=== PATIENT | female | born 1955 | race African-American/Black ===

== ENCOUNTER 2016-09-13 09:07 | Emergency (ER) | payer BC ==
[2016-09-13 09:12] VITALS: BP 146/96; PULSE 77; TEMP 98.2
[2016-09-13] MEDS ORDERED: KETOROLAC TROMETHAMINE 30 MG/1 ML VIAL IM ONE (10:10)
[2016-09-13] MEDS ORDERED: KETOROLAC TROMETHAMINE 30 MG/1 ML VIAL ONE (10:31)
--- NOTE | 2016-09-13 10:48 | PDOC ---
History of Present Illness - General Chief Complaint: Back Pain Stated Complaint: BACK PAIN Time Seen by Provider: 09/13/16 09:40 History Source: Patient Exam Limitations: No Limitations - History of Present Illness Initial Comments: CHIEF COMPLAINT: 60 y/o afebrile female with PMH hypothyroidism, kidney stones and HTN (resolved since adrenal gland removal) c/o right sided upper back and side pain x 3 days. HISTORY OF PRESENT ILLNESS: The patient states she started having right upper back pain Tuesday that felt like kidney pain. She took and Ibuprofen and the pain subsided. She had minimal pain yesterday and took another Ibuprofen. She states this morning the pain had moved around to her right side. She states the pain is intermittent. She denies f/c, n/v/d, CP, SOB, hematuria, dysuria. Vital signs on arrival are within normal limits. REVIEW OF SYSTEMS: GENERAL/CONSTITUTIONAL: No fever/chills. No weakness. No weight change. HEAD, EYES, EARS, NOSE AND THROAT: No change in vision. No ear pain or discharge. No sore throat. CARDIOVASCULAR: No chest pain or shortness of breath. RESPIRATORY: No cough, wheezing, or hemoptysis. GASTROINTESTINAL: +right side pain. No nausea, vomiting, diarrhea. GENITOURINARY: No dysuria, frequency, or change in urination. MUSCULOSKELETAL: No joint or muscle swelling or pain. No neck pain. +right upper back pain. SKIN: No rash or easy bruising. NEUROLOGIC: No headache, vertigo, loss of consciousness, or loss of sensation. PHYSICAL EXAM: GENERAL: The patient is awake, alert, and fully oriented, in no acute distress. She is uncomfortable appearing but ambulatory. HEAD: Normal with no signs of trauma. ENT: Pupils equal, round and reactive to light, extraocular movements intact, sclera anicteric, conjunctiva clear. Neck supple. LUNGS: Clear to auscultation bilaterally. Normal excursion. No respiratory distress or use of accessory muscles. CV: RRR, S1/S2, no MRG. Cap refill < 2 sec. ABDOMEN: Soft, non-distended, tenderness to palpation of right flank. BACK: No CVA TTP b/l. EXTREMITIES: Normal range of motion, no edema. NEUROLOGICAL: Normal speech, normal gait. CN II-XII grossly intact. PSYCH: Normal mood, normal affect. SKIN: Warm, dry, normal turgor, no rashes or lesions noted. Past History - Past Medical History Allergies/Adverse Reactions: Allergies Allergy/AdvReac Type Severity Reaction Status Date / Time No Known Allergies Allergy Verified 09/13/16 09:08 Home Medications: Ambulatory Orders Levothyroxine [Synthroid -] 100 mcg PO DAILY 09/13/16 Cardiac Disorders: Yes (svt) HTN: Yes (borderline) Thyroid Disease: Yes (hypo) - Surgical History Cardiac Surgery: Yes (ablation for svt) - Psycho/Social/Smoking Cessation Hx Anxiety: No Suicidal Ideation: No Smoking History: Never smoked Have you smoked in the past 12 months: No Information on smoking cessation initiated: No Hx Alcohol Use: No Drug/Substance Use Hx: No Substance Use Type: None *Physical Exam - Vital Signs Last Vital Signs Temp Pulse Resp BP Pulse Ox 98.2 F 77 18 146/96 100 09/13/16 09:09 09/13/16 09:09 09/13/16 09:09 09/13/16 09:09 09/13/16 09:09 ED Treatment Course - LABORATORY CBC & Chemistry Diagram: 09/13/16 10:26 09/13/16 10:26 Medical Decision Making - Medical Decision Making A/P: 60 y/o afebrile female with possible kidney stone/renal colic. Plan is as follows: 1. Labs 2. IM Toradol 3. UA/culture 4. IV fluids 5. Spiral CT Labs unremarkable UA negative for UTI Spiral CT IMPRESSION: Tiny right and left renal nonobstructing stone without gross evidence of hydroureteronephrosis or ureteral stone, bilaterally. No urinary bladder stone is identified. Evaluation of the liver, spleen, pancreas, gallbladder, both adrenal glands and both kidneys appear unremarkable. 8mm nodular density in right lung base. The patient was given all of her results. She does not have a PCP in [place] and provided a referral to Dr. Saunders. Strongly encouraged her to f/u with him as soon as possible for further work up of lung nodule. Instructed her to take ibuprofen with food for kidney stone and drink plenty of fluids. Instructed her to return to the ER with any worsening or concerning symptoms. The patient verbalizes understanding of all instructions, has no further questions and is awaiting discharge. *DC/Admit/Observation/Transfer Diagnosis at time of Disposition: Renal colic on right side, Kidney stone on right side - Discharge Dispostion Disposition: HOME Condition at time of disposition: Improved - Referrals Referrals: Matthew Saunders MD [Staff Physician] - Call tomorrow - Patient Instructions Printed Discharge Instructions: DI for Kidney Stones Additional Instructions: Discharge Instructions: -Take Ibuprofen for pain with food every 6 hours -Drink at least 64oz of water daily -Follow up with Dr. Saunders within 1 week -Return to the ER with any worsening or concerning symptoms. - Post Discharge Activity Work/School Note: Back to Work
[2016-09-13 10:54] LABS: EOSINOPHIL 0.9 % (0-4.5); MCH 29.2 pg (25.7-33.7); MCHC 32.1 g/dl (32.0-36.0); MEAN CELL VOLUME 90.8 fl (80-96); MEAN PLT VOLUME 7.1 fl (7.5-11.1); NEUTROPHILS 69.6 % (42.8-82.8); PLATELET COUNT 184 K/MM3 (134-434); RDW 13.4 % (11.6-15.6); WHITE BLOOD COUNT 4.6 K/mm3 (4.0-10.0)
[2016-09-13 11:07] LABS: URINE APPEARANCE CLEAR; URINE BILIRUBIN NEGATIVE (NEGATIVE); URINE BLOOD NEGATIVE (NEGATIVE); URINE COLOR COLORLESS; URINE GLUCOSE (UA) NEGATIVE (NEGATIVE); URINE KETONE NEGATIVE (NEGATIVE); URINE LEUK ESTERASE NEGATIVE (NEGATIVE); URINE NITRITE NEGATIVE (NEGATIVE); URINE PROTEIN NEGATIVE (NEGATIVE); URINE UROBILINOGEN NEGATIVE E.U./dl (0.2-1.0)
[2016-09-13 11:17] LABS: ALBUMIN 4.4 g/dl (3.4-5.0); ANION GAP 4 (8-16); BILIRUBIN,TOTAL 0.3 mg/dL (0.2-1.0); CALCIUM 9.8 mg/dL (8.5-10.1); CO2 32 mmol/L (21-32); CREATININE 1.4 mg/dL (0.55-1.02); GLUCOSE,RANDOM 88 mg/dL (74-106); SGOT/AST 41 U/L (15-37); SGPT/ALT 52 U/L (12-78); TOT PROT 8.2 g/dl (6.4-8.2)
[2016-09-13 11:18] LABS: ALK PHOS 108 U/L (45-117)
[2016-09-13] MEDS ORDERED: SODIUM CHLORIDE 1,000 ML IV STA (11:24)
--- NOTE | 2016-09-13 12:22 | PDOC ---
*Physical Exam - Vital Signs Last Vital Signs Temp Pulse Resp BP Pulse Ox 98.2 F 77 18 146/96 100 09/13/16 09:09 09/13/16 09:09 09/13/16 09:09 09/13/16 09:09 09/13/16 09:09 ED Treatment Course - LABORATORY CBC & Chemistry Diagram: 09/13/16 10:26 09/13/16 10:26 - ADDITIONAL ORDERS Additional order review: Laboratory Results 09/13/16 09/13/16 10:26 10:11 Sodium 138 Potassium 4.9 Chloride 102 Carbon Dioxide 32 Anion Gap 4 L BUN 23 H Creatinine 1.4 H Creat Clearance w eGFR 38.23 Random Glucose 88 Calcium 9.8 Total Bilirubin 0.3 AST 41 H ALT 52 Alkaline Phosphatase 108 Total Protein 8.2 Albumin 4.4 Urine Color Colorless Urine Appearance Clear Urine pH 6.0 Urine Protein Negative Urine Glucose (UA) Negative Urine Ketones Negative Urine Blood Negative Urine Nitrite Negative Urine Bilirubin Negative Urine Urobilinogen Negative Ur Leukocyte Esterase Negative 09/13/16 10:26 RBC 4.28 MCV 90.8 MCHC 32.1 RDW 13.4 MPV 7.1 L Neutrophils % 69.6 Lymphocytes % 23.5 Monocytes % 5.0 Eosinophils % 0.9 Basophils % 1.0 - Medications Given in the ED: ED Medications Discontinued Medications Generic Name Dose Route Start Last Admin Trade Name Freq PRN Reason Stop Dose Admin Ketorolac Tromethamine 30 mg 09/13/16 10:10 09/13/16 10:38 Toradol Injection - IM 09/13/16 10:11 30 mg ONCE ONE Administration Medical Decision Making - Medical Decision Making 09/13/16 12:22 Pt seen by the Advanced Practice Provider under my direct supervision Ancillary studies reviewed I agree with plan as outlined by the Advanced Practice Provider LANI Jeffrey
== END 2016-09-13 13:39 | disposition home or self-care (01) ==
LOC: JER 09:07 → JERFT 09:07 → JER 13:39
PROC: 3E0233Z Introduction of Anti-inflammatory into Muscle, Percutaneous Approach (ICD-10-PCS; principal; 2016-09-13)
DX: N20.0 Calculus of kidney (principal); E03.9 Hypothyroidism, unspecified; Z86.79 Personal history of other diseases of the circulatory system
CPT/HCPCS: 36415; 74176; 80053; 81003; 85025; 87086; 99281-25